=== PATIENT | female | born 1985 | race Caucasian/White ===

== ENCOUNTER 2016-12-29 02:36 | Inpatient (IN) | payer BC ==
[2016-12-29] VITALS (10 sets, daily range): BP systolic 105–117; BP diastolic 56–72
[~2016-12-29] VITALS: Ht 172.7 cm; Wt 85.0 kg
[~2016-12-29 02:36] MED LIST: PRENATAL TABLE1 EACH PO
[2016-12-29 04:05] LABS: EOSINOPHIL (%) 0.1 % (0-5); HEMATOCRIT 37.3 % (36.0-46.0); IMMATURE GRANULOCYTE (%) 0.5 % (0.0-0.7); IMMATURE GRANULOCYTE COUNT 0.1 K/uL; INSTRUMENT ABS NEUTROPHIL CT 14.5 K/uL; LYMPHOCYTE COUNT 0.8 K/uL (1.0-2.8); MCH 27.7 PG (29.0-34.0); MEAN PLAT.VOLUME 11.2 uM^3 (9.5-12.4); MONOCYTE (%) 2.7 % (3-12); MONOCYTE COUNT 0.4 K/uL (0-0.8); NEUTROPHIL (%) 91.7 % (45-76); NEUTROPHIL COUNT 14.5 K/uL (1.8-6.4); PLATELET COUNT 174 K/uL (156-360); RBC DIS.WIDTH-SD 43.1 % (39-53); RED BLOOD COUNT 4.44 M/uL (3.80-5.20); WHITE BLOOD COUNT 15.8 K/uL (4.1-10.2)
[2016-12-30 07:30] VITALS: BP 120/69
[2016-12-30 15:49] VITALS: BP 115/65
[2016-12-30 23:23] VITALS: BP 118/66
[2016-12-31 07:42] VITALS: BP 120/74
[2016-12-31 15:10] VITALS: BP 125/80
== END 2016-12-31 15:31 | disposition home or self-care (01) | DRG 775 ==
LOC: LDRP-OP 02:36 → 2WEST 02:37 → LDRP-OP 02-03 18:10
PROVIDERS: Advanced Practice Midwife
PROC: 10E0XZZ Delivery of Products of Conception, External Approach (ICD-10-PCS; principal; 2016-12-29)
DX: O77.0 Labor and delivery complicated by meconium in amniotic fluid (principal); Z3A.39 39 weeks gestation of pregnancy; Z37.0 Single live birth
CPT/HCPCS: 85025; J2590